=== PATIENT | female | born 1985 | race Caucasian/White ===

== ENCOUNTER → 2020-05-30 | Outpatient (CLI) | payer OTHER | END | disposition home or self-care (01) | LOC: STAR 14:00 | PROVIDERS: ATTEND Surgery | DX: Z20.822 Contact with and (suspected) exposure to COVID-19 (principal); K40.91 Unilateral inguinal hernia, without obstruction or gangrene, recurrent | CPT/HCPCS: 87635 ==

== ENCOUNTER 2020-06-03 06:44 | Day surgery (SDC) | payer OTHER ==
[~2020-06-03] VITALS: Ht 167.6 cm; Wt 97.2 kg
[2020-06-03] MEDS ORDERED: BUPIVACAINE/PF 0.5% ONE (07:01)
[2020-06-03] MEDS ORDERED: EPINEPHRINE 1 MG/ML, 1ML ONE (07:01)
[2020-06-03 07:22] VITALS: BP 123/85
[2020-06-03] MEDS ORDERED: CHLORHEXIDINE 15 ML UDC MM ONE (07:30)
[2020-06-03] MEDS ORDERED: LACTATED RINGERS 1,000 ML IV SCH (07:30)
[2020-06-03] MEDS ORDERED: FENTANYL PF 250 MCG/5ML ONE (07:48)
[2020-06-03] MEDS ORDERED: MIDAZOLAM 1 MG/ML, 2ML ONE (07:48)
[2020-06-03] MEDS ORDERED: ONDANSETRON 2MG/ML, 2ML ONE (07:53)
[2020-06-03] MEDS ORDERED: PROPOFOL 10 MG/ML, 20ML ONE (07:53)
[2020-06-03] MEDS ORDERED: GLYCOPYRROLATE 0.2MG/1ML, 5ML ONE (07:53)
[2020-06-03] MEDS ORDERED: NEOSTIGMINE 1 MG/ML, 10ML ONE (07:53)
[2020-06-03] MEDS ORDERED: ROCURONIUM 10MG/ML,5ML ONE (07:53)
[2020-06-03] MEDS ORDERED: KETOROLAC 30 MG/1 ML ONE (07:53)
[2020-06-03] MEDS ORDERED: CEFAZOLIN 1,000 MG ONE (07:53)
[2020-06-03] MEDS ORDERED: HYDR-1067 PO (08:14)
[2020-06-03] MEDS ORDERED: SUGAMMADEX 200 MG/2 ML IVPush ONE (08:22)
[2020-06-03] MEDS ORDERED: ACETAMINOPHEN 325 MG TABLET PO PRN (08:30)
[2020-06-03] MEDS ORDERED: OXYcodone 5 MG/5 ML ORAL.SOL UDC PO PRN (08:30)
[2020-06-03] MEDS ORDERED: MEPERIDINE/PF 25MG/0.5ML IVPush PRN (08:30)
[2020-06-03] MEDS ORDERED: HALOPERIDOL 5 MG/ML IV PRN (08:30)
[2020-06-03] MEDS ORDERED: PROMETHAZINE 25 MG/ML, 1ML IVPush PRN (08:30)
[2020-06-03] MEDS ORDERED: hydrALAzine 20 MG/ML, 1ML IV PRN (08:30)
[2020-06-03] MEDS ORDERED: LABETALOL 5MG/ML, 20ML IV PRN (08:30)
[2020-06-03] MEDS ORDERED: morphine SULFATE 10 MG/ML, 1ML IVPush PRN (08:30)
[2020-06-03] MEDS ORDERED: FENTANYL PF 100 MCG/2ML ONE ×2 (09:06→09:12)
[2020-06-03] MEDS ORDERED: HYDROmorphone 2 MG/ML, 1ML ONE (09:12)
[2020-06-03] MEDS ORDERED: OXYcodone 5 MG/5 ML ORAL.SOL UDC ONE (09:12)
[2020-06-03] MEDS: FENTANYL PF 100 MCG/2ML IV PRN ×2 (09:17→09:23)
[2020-06-03] MEDS: HYDROmorphone 1 MG/ML, 1ML INJ IVPush PRN ×5 (09:18→09:47)
[2020-06-03] MEDS ORDERED: ACETAMINOPHEN 325 MG TABLET ONE (09:39)
[2020-06-03] MEDS ORDERED: HYDROmorphone 1 MG/ML, 1ML INJ ONE (09:46)
== END 2020-06-03 11:15 | disposition home or self-care (01) ==
LOC: OUT 06:44
PROVIDERS: ATTEND Surgery
DX: K43.0 Incisional hernia with obstruction, without gangrene (principal); F17.210 Nicotine dependence, cigarettes, uncomplicated; Z98.890 Other specified postprocedural states; Z82.49 Family history of ischemic heart disease and other diseases of the circulatory system; Z83.42 Family history of familial hypercholesterolemia
CPT/HCPCS: 36415; 49566; 49568; 84703; C1781; J0171; J0690; J1170; J1885; J2250; J2405; J2704; J2710; J3010; J7120